=== PATIENT | male | born 1935 | race Hispanic/Latino ===

== ENCOUNTER 2019-11-17 11:26 | Emergency (ER) | payer OTHER ==
--- OUTSIDE RECORDS SUMMARY | 2019-11-17 11:27 | XMS REPORT ---
:1935 [facility] Address [address] [place] [address] [address]. [address] [place] [address] Care Team Providers Name Role Phone Unavailable Unavailable Unavailable Problems This patient has no known problems. Allergies, Adverse Reactions, Alerts This patient has no known allergies or adverse reactions. Medications This patient has no known medications.
--- NOTE | 2019-11-17 12:16 | RAD REPORT ---
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 Several radiodens e soft tissue foreign bodies are seen in the region of the first metacarpal. No acute fractures demon strated.
[2019-11-17] MEDS ORDERED: TETANUS & DIPHTHERIA TOX,ADULT 0.5 ML VIAL ONE (14:04)
[2019-11-17] MEDS ORDERED: HYDROCODONE/APAP 7.5/325 MG TAB ONE (16:28)
--- NOTE | 2019-11-17 16:43 | EDPHYS ---
Physician Documentation [facility] Name: Willy Pineda Age: 84 yrs Sex: Male : 1935 Arrival Date: 11/17/2019 Time: 11:29 Bed 12 Private MD: ED Physician HPI: 11/16 14:14 This 84 yrs old Male presents to ER via Ambulatory with complaints of kb Laceration To Hand. 14:14 The patient has a laceration related to: Cutting some bushes in the yard and the kb machine he was using caught his hand, ripped his glove off and cut his hand occurred at home, outdoors, and has glass or an other foreign body present. The injury was accidental. The laceration(s) is(are) located on the Right first web space and palmar aspect of proximal phalanx of right thumb and palmar aspect of proxima; phalanx of right index finger. Onset: The symptoms/episode began/occurred just prior to arrival. Associated signs and symptoms: The patient has no apparent associated signs or symptoms. The patient has not experienced similar symptoms in the past. The patient has not recently seen a physician. Historical: - Allergies: 11:35 No Known Allergies; ca1 - Home Meds: 11:35 None [Active]; ca1 - PMHx: 11:35 None; ca1 - PSHx: 11:35 None; ca1 - Immunization history:: Adult Immunizations not up to date, Last tetanus immunization: not immunized per patient choice, Pneumococcal vaccine is not up to date, Flu vaccine is not up to date. - Social history:: Smoking status: Patient reports the use of cigarette tobacco products, smokes one-half pack cigarettes per day. ROS: 14:12 Constitutional: Negative for fever, chills, and weight loss, Neck: Negative for injury, kb pain, and swelling, Cardiovascular: Negative for chest pain, palpitations, and edema, Respiratory: Negative for shortness of breath, cough, wheezing, and pleuritic chest pain, Abdomen/GI: Negative for abdominal pain, nausea, vomiting, diarrhea, and constipation, MS/Extremity: Negative for injury and deformity, Neuro: Negative for headache, weakness, numbness, tingling, and seizure. 14:12 Skin: Positive for laceration(s), of the palmar aspect of proximal phalanx of right thumb and Right first web space. Exam: 14:12 Constitutional: This is a well developed, well nourished patient who is awake, alert, kb and in no acute distress. Head/Face: Normocephalic, atraumatic. Chest/axilla: Normal chest wall appearance and motion. Nontender with no deformity. No lesions are appreciated. Cardiovascular: Regular rate and rhythm with a normal S1 and S2. No gallops, murmurs, or rubs. Normal PMI, no JVD. No pulse deficits. Respiratory: Lungs have equal breath sounds bilaterally, clear to auscultation and percussion. No rales, rhonchi or wheezes noted. No increased work of breathing, no retractions or nasal flaring. Abdomen/GI: Soft, non-tender, with normal bowel sounds. No distension or tympany. No guarding or rebound. No evidence of tenderness throughout. MS/ Extremity: Pulses equal, no cyanosis. Neurovascular intact. Full, normal range of motion. Neuro: Awake and alert, GCS 15, oriented to person, place, time, and situation. Cranial nerves II-XII grossly intact. Motor strength 5/5 in all extremities. Sensory grossly intact. Cerebellar exam normal. Normal gait. 14:12 Skin: injury, abrasion(s), small abrasion noted, of the palmar aspect of proxima; phalanx of right index finger, laceration(s), the wound is approximately 3 cm(s), of the palmar aspect of proximal phalanx of right thumb, the second wound is approximately 4 cm(s), of the Right first web space, that can be described as contaminated, jagged, without bleeding. Vital Signs: 11:32 BP 118 / 73; Pulse 73; Resp 17; Temp 97.3(O); Pulse Ox 97% on R/A; Weight 58.06 kg (R); ca1 Height 5 ft. 7 in. (170.18 cm) (R); 11:32 Body Mass Index 20.05 (58.06 kg, 170.18 cm) ca1 Laceration: 16:39 Wound Repair of 4cm ( 1.6in ) subcutaneous laceration to Right first web space. kb Irregularly shaped.. Distal neuro/vascular/tendon intact. Anesthesia: Wound infiltrated with 6 mls of 1% lidocaine. Wound prep: Extensive cleansing with betadine with hibiclenz by sound effects technician, Wound irrigation with saline. Skin closed with 6 5-0 Prolene using simple sutures and sterile technique. Dressed with Neosporin. Patient tolerated well. 16:39 Wound Repair of 3cm ( 1.2in ) subcutaneous laceration to palmar aspect of proximal kb phalanx of right thumb. Irregularly shaped.. Distal neuro/vascular/tendon intact. Anesthesia: Wound infiltrated with 4 mls of 1% lidocaine. Wound prep: Extensive cleansing with hibiclenz by sound effects technician, Wound irrigation with saline. Skin closed with 5 5-0 Prolene using simple sutures and sterile technique. Patient tolerated well. MDM: 14:01 Patient medically screened. kb 14:10 Data reviewed: vital signs, nurses notes. Data interpreted: Pulse oximetry: on room air kb is 97 %. Interpretation: normal. 14:14 ED course: Hand soaking in betadine/NS mixture for 15 minutes. kb 16:41 Counseling: I had a detailed discussion with the patient and/or guardian regarding: the kb historical points, exam findings, and any diagnostic results supporting the discharge/admit diagnosis, radiology results, the need for outpatient follow up, a family practitioner, to return to the emergency department if symptoms worsen or persist or if there are any questions or concerns that arise at home. ED course: FB seen on x-ray are from years ago. No new FB noted on films. . 16:47 ED course: No narcotics prescribed per [facility]. kb 11/16 11:36 Order name: XRAY Hand RIGHT 3 View; Complete Time: 13:39 [facility] 11/16 14:17 Order name: Dressing - Wound; Complete Time: 17:00 jl7 11/16 14:17 Order name: Gloves, Sterile; Complete Time: 14:17 7 11/16 14:17 Order name: Setup Suture Tray; Complete Time: 14:17 jl7 Administered Medications: 14:10 Drug: Lidocaine (1 %) 10 ml {Note: administered by EMILY Welch.} Volume: 20 ml; Route: jl7 Infiltration; 14:31 Drug: Tetanus-Diphtheria Toxoid Adult 0.5 ml {Manager Safe: [employer]. Exp: jl7 08/13/2021. Lot #: [id number]. } Route: IM; Site: left deltoid; 17:00 Follow up: Response: No adverse reaction jl7 16:00 Drug: Ringgold (7.5 mg-325 mg) 1 tabs Route: PO; jl7 16:30 Follow up: Response: No adverse reaction; Pain is decreased jl7 Disposition: 11/17 10:47 Co-signature as Attending Physician, Manjit Frausto MD I agree with the assessment and kdr plan of care. Disposition: 11/17/19 16:42 Discharged to Home. Impression: Laceration without foreign body of right thumb without damage to nail, Laceration without foreign body of right hand - first web space. - Condition is Stable. - Discharge Instructions: Laceration Care, Adult, [id number]. - Prescriptions for Tramadol 50 mg Oral Tablet - take 1 tablet by ORAL route every 8 hours as needed; 12 tablet. - Medication Reconciliation Form, Thank You Letter, Antibiotic Education, Prescription Opioid Use form. - Follow up: Emergency Department; When: As needed; Reason: Worsening of condition. Follow up: Private Physician; When: 2 - 3 days; Reason: Recheck today's complaints, Continuance of care, Re-evaluation by your physician. - Notes: Return in 10-14 days for suture removal. Watch for signs of infection including redness, swelling, warmth and drainage Keep clean and dry Signatures: Dispatcher [employer] EDRebekah Hogue, DIRECTOR OF SPORTS MEDICINE-C DIRECTOR OF SPORTS MEDICINE-Ckb Manjit Frausto MD MD kdr Tianna Ryan RN RN jl7 Brook Mccullough RN RN ca1 Corrections: (The following items were deleted from the chart) 11/16 16:39 14:12 Skin: injury, abrasion(s), small abrasion noted, of the palmar aspect of proxima; kb phalanx of right index finger, laceration(s), the wound is approximately 3 cm(s), of the palmar aspect of proximal phalanx of right thumb, the second wound is approximately 3 cm(s), of the Right first web space, that can be described as contaminated, jagged, without bleeding, kb 16:42 16:30 Hand Right 2 View+RAD.RAD.BRZ ordered. EDHI EDMS 17:01 16:42 11/17/2019 16:42 Discharged to Home. Impression: Laceration without foreign body jl7 of right thumb without damage to nail; Laceration without foreign body of right hand - first web space. Condition is Stable. Forms are Medication Reconciliation Form, Thank You Letter, Antibiotic Education, Prescription Opioid Use. Follow up: Emergency Department; When: As needed; Reason: Worsening of condition. Follow up: Private Physician; When: 2 - 3 days; Reason: Recheck today's complaints, Continuance of care, Re-evaluation by your physician. kb 19:14 17:01 11/17/2019 16:42 Discharged to Home. Impression: Laceration without foreign body jl7 of right thumb without damage to nail; Laceration without foreign body of right hand - first web space. Condition is Stable. Discharge Instructions: Laceration Care, Adult, [id number]. Prescriptions for Tramadol 50 mg Oral Tablet - take 1 tablet by ORAL route every 8 hours as needed; 12 tablet. and Forms are Medication Reconciliation Form, Thank You Letter, Antibiotic Education, Prescription Opioid Use. Follow up: Emergency Department; When: As needed; Reason: Worsening of condition. Follow up: Private Physician; When: 2 - 3 days; Reason: Recheck today's complaints, Continuance of care, Re-evaluation by your physician. jl7
--- NOTE | 2019-11-17 16:43 | ER ---
Nurse's Notes [facility] Name: Willy Pineda Age: 84 yrs Sex: Male : 1935 Arrival Date: 11/17/2019 Time: 11:29 Bed 12 Private MD: Diagnosis: Laceration without foreign body of right thumb without damage to nail;Laceration without foreign body of right hand-first web space Presentation: 11/16 11:32 Chief complaint: Patient states: lac on R thumb and index finger with a electro ca1 outer diameter grinder. Minimal bleeding noted. Coronavirus screen: The patient has NOT traveled to a country currently being monitored by the [facility] within the last 14 days. The patient has NOT had contact with any known and/or suspected case of coronavirus. Ebola Screen: Patient negative for fever greater than or equal to 101.5 degrees Fahrenheit, and additional compatible Ebola Virus Disease symptoms Patient denies exposure to infectious person. Patient denies travel to an Ebola-affected area in the 21 days before illness onset. No symptoms or risks identified at this time. Initial Sepsis Screen: Does the patient meet any 2 criteria? No. Patient's initial sepsis screen is negative. Does the patient have a suspected source of infection? No. Patient's initial sepsis screen is negative. Risk Assessment: Do you want to hurt yourself or someone else? Patient reports no desire to harm self or others. Onset of symptoms was November 17, 2019. 11:32 Method Of Arrival: Ambulatory ca1 11:32 Acuity: LEI 3 ca1 Triage Assessment: 11:35 Injury Description: Laceration sustained to palmar aspect of proxima; phalanx of right ca1 index finger and palmar aspect of proximal phalanx of right thumb is jagged, 0.5 to 2.5 cm long, was sustained less than 30 minutes ago. is bleeding a small amount. Historical: - Allergies: 11:35 No Known Allergies; ca1 - Home Meds: 11:35 None [Active]; ca1 - PMHx: 11:35 None; ca1 - PSHx: 11:35 None; ca1 - Immunization history:: Adult Immunizations not up to date, Last tetanus immunization: not immunized per patient choice, Pneumococcal vaccine is not up to date, Flu vaccine is not up to date. - Social history:: Smoking status: Patient reports the use of cigarette tobacco products, smokes one-half pack cigarettes per day. Screenin:30 Abuse screen: Denies threats or abuse. Denies injuries from another. Nutritional jl7 screening: No deficits noted. Tuberculosis screening: No symptoms or risk factors identified. Fall Risk None identified. Assessment: 13:30 General: Appears in no apparent distress. uncomfortable, Behavior is calm, cooperative, jl7 appropriate for age. Pain: Complains of pain in Right first web space and palmar aspect of proximal phalanx of right thumb Pain currently is 10 out of 10 on a pain scale. Neuro: Level of Consciousness is awake, alert, obeys commands. Cardiovascular: Patient's skin is warm and dry. Respiratory: Airway is patent Respiratory effort is even, unlabored, Respiratory pattern is regular, symmetrical. Derm: Skin is pink, warm \T\ dry. Musculoskeletal: Range of motion: intact in all extremities. Injury Description: Laceration sustained to palmar aspect of proximal phalanx of right thumb and Right first web space is contaminated, 2.6 to 7.5 cm long, was sustained less than 30 minutes ago. is bleeding a small amount. 14:30 Reassessment: Patient appears in no apparent distress at this time. No changes from jl7 previously documented assessment. Patient and/or family updated on plan of care and expected duration. Pain level reassessed. Patient is alert, oriented x 3, equal unlabored respirations, skin warm/dry/pink. 15:30 Reassessment: Patient appears in no apparent distress at this time. No changes from jl7 previously documented assessment. Patient and/or family updated on plan of care and expected duration. Pain level reassessed. Patient is alert, oriented x 3, equal unlabored respirations, skin warm/dry/pink. Vital Signs: 11:32 BP 118 / 73; Pulse 73; Resp 17; Temp 97.3(O); Pulse Ox 97% on R/A; Weight 58.06 kg (R); ca1 Height 5 ft. 7 in. (170.18 cm) (R); 11:32 Body Mass Index 20.05 (58.06 kg, 170.18 cm) ca1 ED Course: 11:29 Patient arrived in ED. mr 11:34 Triage completed. ca1 11:35 Arm band placed on right wrist. ca1 11:59 XRAY Hand RIGHT 3 View In Process Unspecified. EDMS 12:30 Patient has correct armband on for positive identification. Bed in low position. Call jl7 light in reach. Side rails up X 1. 13:22 Tianna Ryan RN is Primary Nurse. jl7 13:59 Rebekah Royal FNP-C is [facility]. kb 13:59 Manjit Frausto MD is Attending Physician. kb 15:51 Irrigation of laceration irrigated with normal saline Patient tolerated well. Wound 3 care: to laceration cleaned with chlorhexidine and normal saline. 16:50 Assist provider with laceration repair on Right first web space and palmar aspect of jl7 proximal phalanx of right thumb that was between 2.6 to 7.5 cm using sutures. Set up tray. Performed by Rebekah CANSECO Dressed with 4X4s, Patient tolerated well. Patient did not have IV access during this emergency room visit. 19:12 Attending Physician role handed off by Manjit Frausto MD jl7 Administered Medications: 14:10 Drug: Lidocaine (1 %) 10 ml {Note: administered by NP. Rebekah} Volume: 20 ml; Route: jl7 Infiltration; 14:31 Drug: Tetanus-Diphtheria Toxoid Adult 0.5 ml {Warehouse Shift Supervisor: [employer]. Exp: jl7 08/13/2021. Lot #: [id number]. } Route: IM; Site: left deltoid; 17:00 Follow up: Response: No adverse reaction jl7 16:00 Drug: Thayer (7.5 mg-325 mg) 1 tabs Route: PO; jl7 16:30 Follow up: Response: No adverse reaction; Pain is decreased jl7 Outcome: 16:42 Discharge ordered by . kb 17:00 Discharged to home ambulatory. jl7 17:00 Condition: stable 17:00 Discharge instructions given to patient, family, Instructed on discharge instructions, follow up and referral plans. medication usage, Demonstrated understanding of instructions, follow-up care, medications, Prescriptions given X 1. 17:01 Patient left the ED. jl7 19:14 Patient left the ED. jl7 Signatures: Dispatcher [employer] EDIN Rebekah Royal FNP-C RECYCLING SPECIALIST-Ckalex Teresa Jaime mr Tianna Ryan, RN RN jl7 Ankita Fraser 3 Acob, Brook, RN RN ca1 Corrections: (The following items were deleted from the chart) 19:11 16:50 No provider procedures requiring assistance completed. jl7 jl7
[2019-11-17 17:06] VITALS: BP 118/73; TEMP 97.3; O2SAT 97
== END 2019-11-17 19:14 | disposition home or self-care (01) ==
LOC: ER 11:26
PROC: 0JQJ0ZZ Repair Right Hand Subcutaneous Tissue and Fascia, Open Approach (ICD-10-PCS; principal; 2019-11-17)
DX: S61.011A Laceration without foreign body of right thumb without damage to nail, initial encounter (principal); S61.411A Laceration without foreign body of right hand, initial encounter; W29.8XXA Contact with other powered hand tools and household machinery, initial encounter; Y93.89 Activity, other specified; Y92.017 Garden or yard in single-family (private) house as the place of occurrence of the external cause; F17.210 Nicotine dependence, cigarettes, uncomplicated; Z23 Encounter for immunization
CPT/HCPCS: 90471; 90714; 99284

== ENCOUNTER 2019-11-29 09:31 | Emergency (ER) | payer OTHER ==
--- OUTSIDE RECORDS SUMMARY | 2019-11-29 09:57 | XMS REPORT ---
:1935 [facility] Address [address] [place] [address] Dr. Whitney [address] [place] [id number] Care Team Providers Name Role Phone Unavailable Unavailable Unavailable Problems This patient has no known problems. Allergies, Adverse Reactions, Alerts This patient has no known allergies or adverse reactions. Medications This patient has no known medications.
--- NOTE | 2019-11-29 10:11 | ER ---
Nurse's Notes [facility] Name: Willy Pineda Age: 84 yrs Sex: Male : 1935 Arrival Date: 11/29/2019 Time: 09:33 Bed 19 Private MD: Diagnosis: Encounter for attention to dressings, sutures and drains Presentation: 11/28 09:54 Chief complaint: Patient states: needs sutures removed from right hand, had placed 11 iw days ago here in ER. Coronavirus screen: The patient has NOT traveled to a country currently being monitored by the [facility][NOTE 3] within the last 14 days. Proceed with normal triage procedures. The patient has NOT had contact with any known and/or suspected case of coronavirus. Proceed with normal triage procedures. Ebola Screen: Patient negative for fever greater than or equal to 101.5 degrees Fahrenheit, and additional compatible Ebola Virus Disease symptoms Patient denies exposure to infectious person. Patient denies travel to an Ebola-affected area in the 21 days before illness onset. No symptoms or risks identified at this time. Initial Sepsis Screen: Does the patient meet any 2 criteria? No. Patient's initial sepsis screen is negative. Does the patient have a suspected source of infection? No. Patient's initial sepsis screen is negative. Risk Assessment: Do you want to hurt yourself or someone else? Patient reports no desire to harm self or others. 09:54 Method Of Arrival: Ambulatory iw 09:54 Acuity: LEI 5 iw 10:05 Onset of symptoms was November 29, 2019. ca1 Historical: - Allergies: 09:56 No Known Allergies; iw - PSHx: 09:56 None; iw - Immunization history:: Adult Immunizations. - Social history:: Smoking status: unknown. Screenin:04 Abuse screen: Denies threats or abuse. Denies injuries from another. Nutritional ca1 screening: No deficits noted. Tuberculosis screening: No symptoms or risk factors identified. Fall Risk None identified. Assessment: 10:04 General: Appears in no apparent distress. comfortable, Behavior is calm, cooperative, ca1 appropriate for age. Pain: Denies pain. Neuro: Level of Consciousness is awake, alert, obeys commands, Oriented to person, place, time, situation, Appropriate for age. Derm: Skin is intact, is healthy with good turgor, Skin is pink, warm \T\ dry. Musculoskeletal: Circulation, motion, and sensation intact. Capillary refill < 3 seconds. Vital Signs: 09:54 BP 146 / 75; Pulse 77; Resp 16; Temp 98.7; Pulse Ox 98% on R/A; iw ED Course: 09:33 Patient arrived in ED. ag5 09:48 Brook Mccullough, RN is Primary Nurse. ca1 09:49 Driss Hanley PA is PHCP. cp 09:49 Samuel Arndt MD is Attending Physician. cp 09:55 Triage completed. iw 09:56 Arm band placed on. iw 10:04 Patient has correct armband on for positive identification. Bed in low position. Call ca1 light in reach. Side rails up X 1. Pulse ox on. NIBP on. 10:04 No provider procedures requiring assistance completed. Patient did not have IV access ca1 during this emergency room visit. Administered Medications: No medications were administered Outcome: 10:10 Discharge ordered by . cp 10:12 Discharged to home ambulatory, with significant other. ca1 10:12 Condition: stable 10:12 Discharge instructions given to patient, Instructed on discharge instructions, follow up and referral plans. Demonstrated understanding of instructions, follow-up care. 10:13 Patient left the ED. ca1 Signatures: Naima Mayer RN RN Driss Hanley PA PA cp Brook Mccullough RN RN ca1 Sharlene Ramu ag5
--- NOTE | 2019-11-29 10:11 | EDPHYS ---
Physician Documentation [facility] Name: Willy Pineda Age: 84 yrs Sex: Male : 1935 Arrival Date: 11/29/2019 Time: 09:33 Bed 19 Private MD: ED Physician Samuel Arndt HPI: 11/28 10:04 This 84 yrs old Male presents to ER via Ambulatory with complaints of Suture cp Removal. 10:04 The patient has sutures on the right hand. Previous treatment: The patient was cp initially treated 11 day(s) ago, the care was rendered at [facility], Treatment type: The patient's original treatment included sutures. 10:04 Sutures/kayy progress: The patient's wound displays wound dehiscence. cp Historical: - Allergies: 09:56 No Known Allergies; iw - PSHx: 09:56 None; iw - Immunization history:: Adult Immunizations. - Social history:: Smoking status: unknown. ROS: 10:04 Constitutional: Negative for body aches, chills, fever. cp 10:04 Skin: Positive for of the right hand, history of laceration with sutures placed. 10:04 All other systems are negative. Exam: 10:06 Constitutional: The patient appears in no acute distress, alert, awake, non-toxic, well cp developed, well nourished. 10:06 Skin: Wound recheck: Suture laceration closure: no drainage, no erythema, mild dehiscence, mild swelling. Vital Signs: 09:54 BP 146 / 75; Pulse 77; Resp 16; Temp 98.7; Pulse Ox 98% on R/A; iw MDM: 09:56 Patient medically screened. cp 10:08 Data reviewed: vital signs, nurses notes, old medical records, note from previous visit cp to ED and as a result, I will discharge patient. Administered Medications: No medications were administered Disposition: 10:11 Chart complete. cp 10:15 Co-signature as Attending Physician, Samuel Arndt MD. rn Disposition: 11/29/19 10:10 Discharged to Home. Impression: Encounter for attention to dressings, sutures and drains. - Condition is Stable. - Discharge Instructions: Wound Check. - Medication Reconciliation Form, Thank You Letter, Antibiotic Education, Prescription Opioid Use form. - Follow up: Emergency Department; When: 12/03/2019; Reason: Staple/Suture removal. - Problem is new. - Symptoms have improved. Signatures: Naima Mayer RN RN iw Samuel Arndt MD MD rn Driss Hanley PA PA cp Jamel, Brook RN RN ca1 Corrections: (The following items were deleted from the chart) 10:13 10:10 11/29/2019 10:10 Discharged to Home. Impression: Encounter for attention to ca1 dressings, sutures and drains. Condition is Stable. Forms are Medication Reconciliation Form, Thank You Letter, Antibiotic Education, Prescription Opioid Use. Follow up: Emergency Department; When: 12/03/2019; Reason: Staple/Suture removal. Problem is new. Symptoms have improved. cp
[2019-11-29 10:19] VITALS: BP 146/75; TEMP 98.7; O2SAT 98
== END 2019-11-29 10:13 | disposition home or self-care (01) ==
LOC: ER 09:31
DX: S61.411D Laceration without foreign body of right hand, subsequent encounter (principal)
CPT/HCPCS: 99283

== ENCOUNTER 2019-12-03 | Emergency (ER) | payer OTHER ==
--- OUTSIDE RECORDS SUMMARY | 2019-12-03 12:41 | XMS REPORT ---
:1935 [facility] Address [address] [place] [address] Dr. [address] [place] [address] Care Team Providers Name Role Phone Unavailable Unavailable Unavailable Problems This patient has no known problems. Allergies, Adverse Reactions, Alerts This patient has no known allergies or adverse reactions. Medications This patient has no known medications.
--- NOTE | 2019-12-03 13:25 | EDPHYS ---
Physician Documentation [facility] Name: Willy Pineda Age: 84 yrs Sex: Male : 1935 Arrival Date: 12/03/2019 Time: 12:43 Bed 12 Private MD: ED Physician Sky Tavarez HPI: 12/02 13:19 This 84 yrs old Male presents to ER via Ambulatory with complaints of Suture ps1 Removal. 13:19 patient has well approximated laceration of right hand. No signs of infection or ps1 dehiscence. . ROS: 13:19 Constitutional: Negative for fever, chills, and weight loss, Respiratory: Negative for ps1 shortness of breath, cough, wheezing, and pleuritic chest pain, MS/Extremity: Negative for injury and deformity, Neuro: Negative for headache, weakness, numbness, tingling, and seizure. 13:19 Skin: Positive for suture, Negative for swelling, purulence. Exam: 13:19 Constitutional: This is a well developed, well nourished patient who is awake, alert, ps1 and in no acute distress. Head/Face: Normocephalic, atraumatic. Eyes: Pupils equal round and reactive to light, extra-ocular motions intact. Lids and lashes normal. Conjunctiva and sclera are non-icteric and not injected. MS/ Extremity: Pulses equal, no cyanosis. Neurovascular intact. Full, normal range of motion. Neuro: Awake and alert, GCS 15, oriented to person, place, time, and situation. Cranial nerves II-XII grossly intact. Sensory grossly intact. 13:19 Skin: 10 sutures. CDI. No signs of cellulitis. Vital Signs: 13:09 BP 134 / 74; Pulse 78; Resp 16; Temp 98.0; Pulse Ox 100% on R/A; iw Procedures: 13:19 Suture/Staple removal: Removed 10 sutures, from dorsal aspect of proximal phalanx of ps1 right thumb and Right first web space, site appears well healed, dressed with Patient tolerated well. MDM: 13:24 Patient medically screened. ps1 13:24 Data reviewed: vital signs, nurses notes, and as a result, I will discharge patient. ps1 Counseling: I had a detailed discussion with the patient and/or guardian regarding: to return to the emergency department if symptoms worsen or persist or if there are any questions or concerns that arise at home. Administered Medications: No medications were administered Disposition: 12/03/19 13:24 Discharged to Home. Impression: Encounter for removal of sutures. - Condition is Stable. - Discharge Instructions: Suture Removal, Care After. - Medication Reconciliation Form, Thank You Letter, Antibiotic Education, Prescription Opioid Use form. - Follow up: Emergency Department; When: As needed; Reason: Fever > 102 F, Worsening of condition. - Problem is an ongoing problem. - Symptoms have improved. Signatures: Naima Mayer RN RN iw Sky Tavarez MD MD ps1 Corrections: (The following items were deleted from the chart) 13:31 13:24 12/03/2019 13:24 Discharged to Home. Impression: Encounter for removal of iw sutures. Condition is Stable. Forms are Medication Reconciliation Form, Thank You Letter, Antibiotic Education, Prescription Opioid Use. Follow up: Emergency Department; When: As needed; Reason: Fever > 102 F, Worsening of condition. Problem is an ongoing problem. Symptoms have improved. ps1
--- NOTE | 2019-12-03 13:25 | ER ---
Nurse's Notes [facility] Name: Willy Pineda Age: 84 yrs Sex: Male : 1935 Arrival Date: 12/03/2019 Time: 12:43 Bed 12 Private MD: Diagnosis: Encounter for removal of sutures Presentation: 12/02 13:08 Chief complaint: Patient states: need sutures removed from right hand. iw 13:09 Coronavirus screen: The patient has NOT traveled to a country currently being monitored iw by the [facility] within the last 14 days. Proceed with normal triage procedures. The patient has NOT had contact with any known and/or suspected case of coronavirus. Proceed with normal triage procedures. Ebola Screen: Patient negative for fever greater than or equal to 101.5 degrees Fahrenheit, and additional compatible Ebola Virus Disease symptoms Patient denies exposure to infectious person. Patient denies travel to an Ebola-affected area in the 21 days before illness onset. No symptoms or risks identified at this time. Initial Sepsis Screen: Does the patient meet any 2 criteria? No. Patient's initial sepsis screen is negative. Does the patient have a suspected source of infection? No. Patient's initial sepsis screen is negative. Risk Assessment: Do you want to hurt yourself or someone else? Patient reports no desire to harm self or others. 13:09 Method Of Arrival: Ambulatory iw 13:09 Acuity: LEI 5 iw Triage Assessment: 13:30 General: Appears in no apparent distress. iw 13:35 General: Behavior is calm. Pain: Denies pain. iw Screenin:30 Abuse screen: Denies threats or abuse. Denies injuries from another. Nutritional iw screening: No deficits noted. Tuberculosis screening: No symptoms or risk factors identified. Fall Risk None identified. Vital Signs: 13:09 BP 134 / 74; Pulse 78; Resp 16; Temp 98.0; Pulse Ox 100% on R/A; iw ED Course: 12:43 Patient arrived in ED. fj1 13:04 Sky Tavarez MD is Attending Physician. ps1 13:07 Naima Mayer, FORD is Primary Nurse. iw 13:10 Triage completed. iw 13:10 Arm band placed on. iw 13:30 No provider procedures requiring assistance completed. Patient did not have IV access iw during this emergency room visit. Administered Medications: No medications were administered Outcome: 13:24 Discharge ordered by . ps1 13:31 Patient left the ED. iw Signatures: Naima Mayer RN RN iw Sky Tavarez MD MD ps1 Dima Bonds fj1 Corrections: (The following items were deleted from the chart) 13:10 13:08 Chief complaint: Patient states: need sutures removed from hand iw iw
== END 2019-12-03 13:31 | disposition home or self-care (01) ==
DX: Z48.02 Encounter for removal of sutures (principal)
CPT/HCPCS: 99281